=== PATIENT | male | born 1955 | race Caucasian/White ===

== ENCOUNTER 2018-12-17 17:42 | Observation (INO) ==
[2018-12-17] MEDS ORDERED: ZOFRAN IV PRN (18:25)
[2018-12-17] MEDS ORDERED: NS 1,000 ML IV SCH ×2 (18:30→21:22)
[2018-12-17] MEDS ORDERED: NS 500 ML IV ONE (18:41)
[2018-12-17] MEDS: BUSPAR PO SCH (19:44)
[2018-12-17] MEDS: PROSCAR PO SCH (19:45)
[2018-12-17] MEDS: FLEXERIL PO SCH (19:45)
[2018-12-17] MEDS: NEURONTIN PO SCH (19:45)
[2018-12-17] MEDS: CRESTOR PO SCH (19:46)
[2018-12-17] MEDS: GLUCOPHAGE PO SCH (19:46)
[2018-12-17 20:18] LABS: BASO# 0.03 X1000 (0.0-0.2); BASO% 0.5 % (0.0-0.8); EOS# 0.12 X1000 (0.0-0.7); EOS% 1.9 % (0.0-10.0); HEMATOCRIT 42.7 % (42.0-52.0); HEMOGLOBIN 15.1 g/dL (14.0-18.0); LYMPH# 1.67 X1000 (1.2-3.4); LYMPH% 25.8 % (20.5-51.1); MCH 33.1 PG (27-31); MCHC 35.4 g/dL (33-37); MCV 93.6 FL (81-99); MONO# 0.68 X1000 (0.11-0.59); MONO% 10.5 % (1.7-9.3); MPV 10.2 FL (7.4-10.4); NEUT# 3.98 X1000 (1.4-6.5); NEUT% 61.3 % (42.2-75.2); PLT 63 X1000 (130-400); RBC 4.56 XMIL (4.7-6.1); RDW 13.8 % (11.5-14.5); WBC 6.48 X1000 (4.8-10.8)
[2018-12-17 20:48] LABS: AGAP 10; ALB/GLOB RATIO 1.8; ALBUMIN 4.2 g/dL (3.5-5.0); ALKALINE PHOSPHATASE 61 U/L (32-122); BUN 6 mg/dL (8-22); CALCIUM 8.5 mg/dL (8.8-10.2); CHLORIDE 92 mmol/L (98-107); CK PROFILE 106 U/L (24-204); COSMO 252; CREATININE 0.7 mg/dL (0.7-1.2); ESTIMATED GFR > 60; GLUCOSE 85 mg/dL (70-104); GOT 14 U/L (10-34); GPT 14 U/L (10-44); POTASSIUM 3.6 mmol/L (3.5-5.1); SODIUM 127 mmol/L (136-145); TCO2 25 mmol/L (25-35); TOTAL BILIRUBIN 0.67 mg/dL (0.20-1.00); TOTAL PROTEIN 6.6 g/dL (6.3-8.3)
--- NOTE | 2018-12-17 21:06 | Diag Imaging Result Doc PS360 ---
EXAM: CT HEAD W/O CONTRAST - 12/17/2018 HISTORY: Syncope TECHNIQUE: CT head without contrast COMPARISON: 05/31/2015 MRI brain FINDINGS: There is no evidence of intracranial hemorrhage, mass effect, midline shift, or hydrocephalus. There is a small area of encephalomalacia at the inferior left frontal lobe similar to the prior MRI, which may relate to old small infarct. There is no indication of recent infarct, although acute infarcts may not be immediately visible. There are anterior falx ossifications noted consistent with normal variation. IMPRESSION: Small area of encephalomalacia at the inferior left frontal lobe similar to prior MRI, which may relate to old small infarct. No visible acute intracranial abnormality. No hemorrhage or mass effect. This exam was performed using automated exposure control, adjustment of mA or kV according to patient size, and/or use of iterative reconstruction technique. Electronically signed by Boone Ramos 12/17/2018 9:03 PM
--- NOTE | 2018-12-17 21:07 | Diag Imaging Result Doc PS360 ---
EXAM: CHEST-2 VIEWS - 12/17/2018 HISTORY: Shortness of breath TECHNIQUE: Chest two views COMPARISON: 11/06/2011 FINDINGS: Heart size is normal. There is mild linear scarring at the left base similar to prior. The lungs otherwise appear clear. There is no pleural effusion or pneumothorax identified. There are stable old mild compression deformity of mid to lower thoracic vertebral body noted. IMPRESSION: No evidence of acute disease. Electronically signed by Boone Ramos 12/17/2018 9:05 PM
--- NOTE | 2018-12-17 22:31 | HISTORY AND PHYSICAL ---
PRIMARY CARE PHYSICIAN: Dr. Dion Sheffield. CHIEF COMPLAINT: Weakness/syncopal episode. HISTORY OF PRESENT ILLNESS: A 63-year-old white male with a complicated past medical history presents for evaluation of above-mentioned symptoms. Current history of present illness began while waiting in my office. The patient states that another patient was leaving the office with a walker. Patient stood to assist her out the door and developed significant dizziness and weakness. Per report, he fell to the ground striking his head against the door. He did not suffer any significant injuries with the fall. Upon evaluation by my staff, patient was described as "glassy eyed." Ultimately, he regained consciousness and quickly developed significant nausea. He did not vomit. The patient was assisted into the examining room. While there, vital signs were taken and returned within normal limits. The patient's blood sugar returned at 97. States that he has felt poorly with weakness as well as increasing pain. He denies palpitations, chest discomfort, abdominal discomfort, change in bowel movements, nausea, vomiting, dysuria, hematuria, and pyuria. He has noted a foul taste in his mouth recently. PAST MEDICAL HISTORY: 1. Allergic rhinitis. 2. History of atypical chest pain status post negative cardiac evaluation in 2011. 3. Benign bladder tumor diagnosed in 2006. 4. Bilateral carpal tunnel syndrome status post release in 2002. 5. Depression/anxiety. 6. Diabetes. 7. Benign prostatic hypertrophy status post TURP in 2009. 8. Reflux disease. 9. Hypertension. 10. Hypertriglyceridemia. 11. Status post laparoscopic cholecystectomy in 2000. 12. Headaches. 13. History of hepatitis C. 14. Hyperlipidemia. 15. Hypothyroidism. 16. Low back pain. 17. Mnire disease. 18. Obstructive sleep apnea. 19. Osteoarthritis. 20. Hypogonadism. 21. Thrombocytopenia. 22. History of right-sided inguinal hernia repair in 1974. CURRENT MEDICATIONS: 1. Kathy 180 mg daily. 2. Amlodipine 5 mg at bedtime. 3. Bupropion ER 150 mg daily. 4. BuSpar 7.5 mg twice daily. 5. Flexeril 5 mg 3 times daily. 6. Depo-Testosterone every 2 weeks. 7. Lexapro 20 mg daily. 8. Finasteride 5 mg at bedtime. 9. Fluticasone nasal spray 2 sprays each nostril daily. 10. Gabapentin 800 mg 3 times daily. 11. Levothyroxine 150 mcg daily. 12. Losartan/hydrochlorothiazide 100/12.5 daily. 13. Meloxicam 15 mg daily. 14. Metformin 1000 mg twice daily. 15. Buxton 10/325 three times daily. 16. Omeprazole 20 mg daily. 17. ProAir HFA as needed. 18. Rosuvastatin 20 mg at bedtime. ALLERGIES: Patient states he is allergic to codeine which causes nausea, vomiting, and diarrhea, Lipitor which causes myalgias, and simvastatin which proved ineffective. SOCIAL HISTORY: Patient previously smoked 1/2 pack per day and 5 cigars for 30 years old. He quit in 2000. He denies alcohol or illicit drug use. 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 He enjoys fishing. He exercises intermittently. FAMILY HISTORY: Patient's father passed at age 84 secondary to complications of an acute stroke. He had a history of diabetes, hypertension, hyperlipidemia, acute myocardial infarction at age 50, stroke at age 81, prostate and colon cancer. Mother is living at age 90 with a history of an arrhythmia status post pacemaker implantation. REVIEW OF SYSTEMS: A 12-point review of systems was performed. Pertinent positives and negatives noted in history present illness. PHYSICAL EXAMINATION: VITAL SIGNS: Temperature 97.9 degrees, heart rate 74, respirations 16, blood pressure is 118/70. GENERAL: Well nourished, well developed, no acute distress. HEENT: Normocephalic, atraumatic. Pupils equal, round, react to light. Extraocular muscles intact. Sclerae anicteric. [place] conjunctivae. Oral and nasopharynx clear without exudate. NECK: Supple. No lymphadenopathy. No thyromegaly. No bruits auscultated. CARDIOVASCULAR: Regular rate and rhythm. No significant murmurs, rubs, or gallops. PULMONARY: Clear to auscultation bilaterally. ABDOMEN: Soft, nontender, nondistended. Positive bowel sounds. EXTREMITIES: Moves all extremities well. No significant clubbing, cyanosis, or edema. NEUROLOGIC EXAMINATION: Cranial nerves 2 through 12 grossly intact. Motor and sensory grossly intact. PSYCHOLOGIC EXAMINATION: Appropriate. LABORATORY DATA: White blood cell count 6.48, hemoglobin 15.1, hematocrit 42.7, platelet count 63,000, sodium 127, potassium 3.6, chloride 92, bicarb 25, BUN 6, creatinine 0.7, glucose 85, calcium 8.5, total bilirubin 0.67, total protein 6.6, albumin 4.2, alkaline phosphatase 61, AST 14, ALT 14, CK total 106, troponin less than 0.010. IMAGING: Chest x-ray revealed no evidence of acute disease. CT scan of the head suggested small area of encephalomalacia at the inferior left frontal lobe similar to prior MRI, which may relate to an old small infarct. No visible acute intracranial abnormality. No hemorrhage or mass effect. ASSESSMENT AND PLAN: A 63-year-old white male with past medical history as noted presents for evaluation of a syncopal episode. Laboratory data is significant for hyponatremia and thrombocytopenia, new when compared to labs from October. CT scan returned negative. Patient will be admitted to the hospital for full evaluation and management of each of these conditions. 1. Admit to General Medicine. 2. Syncopal episode--Differential diagnosis is quite broad. We will monitor patient on telemetry. We will schedule an echocardiogram and a carotid Doppler in the morning. Depending on these findings, we will consider whether further neurological evaluation and/or event monitoring as appropriate. 3. Hyponatremia--This is quite curious. Recently, patient's sodium level was within normal limits. This certainly could be secondary to syndrome of inappropriate antidiuretic hormone secretion in the setting of increasing pain. He also was being treated with hydrochlorothiazide. We will start patient on IV fluids. We will monitor his clinical course closely. 4. Thrombocytopenia--This also is quite curious. The patient's most recent platelet count was within normal limits. We will repeat levels in the a.m. If this remains low, we will consider whether hematology consultation is appropriate. We will plan to check vitamin B12, folate, and an iron panel. 5. Hypertension--At this point, we will hold antihypertensive intervention. Once blood pressure responds, we will plan to resume therapy. 6. Weakness--This likely is a consequence of his acute illness. We will treat as described above. We will follow. 7. Depression/anxiety--We will continue patient on Lexapro, bupropion, and buspirone therapy. 8. Chronic pain--Unfortunately, symptoms are increasing. We will continue his home regimen and plan for pain specialist referral as an outpatient. 9. Diabetes--We will continue metformin therapy. 10. Fluid, electrolytes, nutrition. We will monitor electrolytes. Normal saline at 75 mL an hour. Cardiac prudent diet. 11. Prophylaxis. Anticoagulants will be held in the setting of thrombocytopenia. We will start after [*]. cc: Dion Sheffield MD
[2018-12-17] MEDS: NORCO-10 PO SCH (22:34)
[2018-12-18] MEDS: PROSCAR PO SCH (00:12)
[2018-12-18] MEDS: BUSPAR PO SCH ×2 (00:12→09:47)
[2018-12-18] MEDS: FLEXERIL PO SCH ×4 (00:13→15:02)
[2018-12-18] MEDS: GLUCOPHAGE PO SCH ×2 (00:13→09:48)
[2018-12-18] MEDS: NEURONTIN PO SCH ×4 (00:13→15:03)
[2018-12-18] MEDS: CRESTOR PO SCH (00:14)
[2018-12-18] MEDS: NORCO-10 PO SCH ×2 (06:32→13:43)
[2018-12-18] MEDS ORDERED: PRILOSEC PO SCH (07:00)
[2018-12-18] MEDS ORDERED: SYNTHROID PO SCH (07:00)
[2018-12-18 07:22] LABS: BASO# 0.02 X1000 (0.0-0.2); BASO% 0.4 % (0.0-0.8); EOS# 0.19 X1000 (0.0-0.7); EOS% 4.2 % (0.0-10.0); HEMATOCRIT 46.2 % (42.0-52.0); LYMPH# 1.65 X1000 (1.2-3.4); LYMPH% 36.8 % (20.5-51.1); MCH 32.9 PG (27-31); MCHC 34.6 g/dL (33-37); MCV 95.1 FL (81-99); MONO# 0.47 X1000 (0.11-0.59); MONO% 10.5 % (1.7-9.3); MPV 10.1 FL (7.4-10.4); NEUT# 2.15 X1000 (1.4-6.5); NEUT% 48.1 % (42.2-75.2); RBC 4.86 XMIL (4.7-6.1); RDW 14.2 % (11.5-14.5); WBC 4.48 X1000 (4.8-10.8)
[2018-12-18 07:27] LABS: PLT 27 X1000 (130-400)
[2018-12-18 07:29] LABS: AGAP 9; BUN 6 mg/dL (8-22); CALCIUM 8.9 mg/dL (8.8-10.2); CHLORIDE 103 mmol/L (98-107); COSMO 273; CREATININE 0.7 mg/dL (0.7-1.2); ESTIMATED GFR > 60; GLUCOSE 121 mg/dL (70-104); POTASSIUM 4.1 mmol/L (3.5-5.1); SODIUM 137 mmol/L (136-145); TCO2 25 mmol/L (25-35); TOTAL IRON 115 ug/dL (53-167)
[2018-12-18 07:44] LABS: FERRITIN 50 ng/mL (30-400)
--- NOTE | 2018-12-18 08:11 | EKG Report ---
Test Performed on : 12/18/2018 08:01:29 AM Test Reason : Syncopal episode Blood Pressure : / mmHG Vent. Rate : 074 BPM Atrial Rate : 074 BPM P-R Int : 172 ms QRS Dur : 094 ms QT Int : 378 ms P-R-T Axes : 056 071 063 degrees QTc Int : 419 ms Normal sinus rhythm. Normal ECG No previous ECGs available Confirmed by Brian DAVIS, Kumar ([id number]) on 12/18/2018 11:46:02 AM
[2018-12-18] MEDS ORDERED: LEXAPRO PO SCH (09:00)
[2018-12-18] MEDS ORDERED: MOBIC PO SCH (09:00)
[2018-12-18] MEDS ORDERED: ALLEGRA PO SCH (09:00)
[2018-12-18] MEDS ORDERED: WELLBUTRIN XL PO SCH (09:00)
[2018-12-18 14:52] LABS: BASO# 0.01 X1000 (0.0-0.2); BASO% 0.3 % (0.0-0.8); EOS# 0.11 X1000 (0.0-0.7); EOS% 3.7 % (0.0-10.0); HEMATOCRIT 46.9 % (42.0-52.0); HEMOGLOBIN 17.2 g/dL (14.0-18.0); LYMPH# 1.04 X1000 (1.2-3.4); LYMPH% 35.1 % (20.5-51.1); MCH 33.7 PG (27-31); MCHC 36.7 g/dL (33-37); MONO# 0.43 X1000 (0.11-0.59); MONO% 14.5 % (1.7-9.3); MPV 8.6 FL (7.4-10.4); NEUT# 1.37 X1000 (1.4-6.5); NEUT% 46.4 % (42.2-75.2); PLT 75 X1000 (130-400); RDW 15.1 % (11.5-14.5); WBC 2.96 X1000 (4.8-10.8)
[2018-12-18 14:55] LABS: EOS 4 % (1-10); LYMPHS 35 % (21-51); MONO 15 % (1-9); SEGS 46 % (42-75)
[2018-12-18 15:22] VITALS: BP 130/80
--- NOTE | 2018-12-18 17:29 | ECHO REPORT ---
ORDER DATE: 12/18/2018 REQUESTING PHYSICIAN: Dr. Dion Sheffield. INDICATION: Syncope. M-MODE MEASUREMENTS: Left ventricle end diastole: 5.0 cm. Left ventricle end systole: 3.1 cm. Posterior wall: 0.9 cm. Interventricular septum: 0.9 cm. Left atrium: 3.7 cm. Aortic diameter: 3.4 cm. SUMMARY OF 2-DIMENSIONAL IMAGIN. The left ventricular function is normal. Ejection fraction is estimated at 65% to 70%. No wall motion abnormality is noted. 2. The aortic valve has three cusps, they open normally. Color flow mapping unremarkable. 3. The pulmonic valve looks normal. Color flow mapping unremarkable. 4. The mitral valve looks normal. Color flow mapping is unremarkable. 5. Pulsed wave Doppler of mitral inflow shows mild reversal of the E and the A ratio. Ratio is 0.8. 6. Tissue Doppler of septal and lateral mitral annulus averages 11 cm. There is no diastolic dysfunction. 7. Tricuspid valve shows mild degree of regurgitation. 8. Pulmonary pressure is estimated grossly at 32 mmHg. 9. There is no evidence of mass or thrombus. 10.The atria and the rest of the chambers appear to be unremarkable. Clinical correlation recommended. cc: MD Dion Hopkins MD
--- NOTE | 2018-12-19 13:34 | DISCHARGE SUMMARY ---
ADMISSION DATE: 12/17/2018 DISCHARGE DATE: 12/18/2018 ADMISSION DIAGNOSES: 1. Weakness. 2. Syncopal episode. DISCHARGE DIAGNOSES: 1. Syncopal episode with unknown etiology. 2. Weakness. 3. Hyponatremia, resolved. 4. Thrombocytopenia. 5. Hypertension, present on arrival. 6. Depression/anxiety, present on arrival. 7. Chronic pain, present on arrival. 8. Diabetes, present on arrival. CONSULTATIONS: None. PROCEDURES: 1. Chest x-ray was performed on 12/17/2018 which revealed no evidence of acute disease. 2. A CT scan of the head was performed on 12/17/2018 which revealed a small area of encephalomalacia at the inferior left frontal lobe similar to prior MRI, which may relate to old small infarct. No visible acute intracranial abnormality. No hemorrhage or mass effect. 3. Echocardiogram was performed on 12/18/2018 which revealed left ventricular function is normal with ejection fraction estimated at 65 to 70 percent. No wall motion abnormality noted. The aortic valve has 3 cusps, they open normally. Color-flow mapping is unremarkable. The pulmonic valve looks normal. Color-flow mapping unremarkable. The mitral valve looks normal. Color flow mapping is unremarkable. No diastolic dysfunction is identified. Tricuspid valve shows a mild degree of regurgitation. Pulmonic pressure is estimated at 32 mmHg. There is no evidence of mass or thrombus. PHYSICAL EXAMINATION: See admit note of physical examination. Prior to discharge, temperature 97.6 degrees, heart rate 60, respirations 20, blood pressure is 130/80. General: Well nourished, well developed, no acute distress. Cardiovascular: Regular rate and rhythm. No significant murmurs, rubs, or gallops. Pulmonary: Clear to auscultation bilaterally. Abdomen: Soft, nontender, nondistended. Positive bowel sounds. Extremities: Moves all extremities well. No significant clubbing, cyanosis, or edema. Dermatologic: Evaluation reveals no evidence of rash. LABORATORY DATA: White blood cell count 2.96, hemoglobin 17.2, hematocrit 46.9, platelet count 75,000. Sodium 137, potassium 4.1, chloride 103, bicarb 25, BUN 6, creatinine 0.7, glucose 121, calcium 8.9. Iron 115, ferritin 50. Vitamin B12 of 483 folate 11.7. HOSPITAL COURSE: Patient was admitted as per history and physical examination. Hospital course per condition is as follows. 1. Syncopal episode - upon admission, the patient had experienced a syncopal episode while in my office. This occurred after he stood attempting to assist another patient with the waiting room door. Full evaluation was pursued. CT scan returned as described above. Echocardiogram returned as above. Telemetry overnight demonstrated no evidence of arrhythmia. Carotid Doppler is pending. With no further episodes and improvement in his condition, it was felt discharge home was appropriate. While hospitalized, his amlodipine and losartan/hydrochlorothiazide were held. Working diagnosis at this point suggests orthostatic hypotension precipitating his syncopal episode. Should patient have any further symptoms, we will have a low threshold for a 30 day event monitor. 2. Hyponatremia - upon admission, patient was noted to be hyponatremic. With IV fluids, this resolved prior to discharge. 3. Thrombocytopenia - this is quite interesting. The patient was noted to be thrombocytopenic upon admission. On the day of discharge, repeat platelet count returned significantly low. Dr. Wen was consulted. It appears that patient does have some platelet clumping. Interestingly though, he also has a history of thrombocytopenia. With a repeat draw in a heparin tube, his platelet count returned at 75,000. Per Dr. Wen, patient has demonstrated levels in this range for many years. Because there is no evidence of bleeding or complications associated, it was felt discharge home with close outpatient followup was most appropriate. He plans to follow up with Dr. Wen in 1 week. 4. Hypertension - the patient is currently being treated with losartan, hydrochlorothiazide, and amlodipine therapy. Each of these were held while hospitalized. His blood pressure remained within normal limits. For this reason, we will continue to hold these medications as an outpatient. Once his systolic blood pressure is consistently above 130, he will resume amlodipine. Should his blood pressure remained above 130, he will then resume losartan and hydrochlorothiazide. We will have patient follow up in approximately 1 week for further evaluation. 5. Weakness - patient was noted to have profound weakness upon admission. This likely is a consequence of his hypotensive state. Full evaluation revealed no definitive etiology other than poor p.o. intake. We will encourage activity as an outpatient. 6. Depression/anxiety - patient's symptoms remained reasonably controlled with Lexapro, bupropion, a buspirone therapy. 7. Chronic pain - unfortunately, this has increased. Certainly the pain could precipitate in syndrome of inappropriate antidiuretic hormone hypersecretion. We will continue his current pain medication regimen. Should patient continue to have progression, we will have a low threshold for referral for pain medicine specialty. 8. Diabetes - Patient was maintained on metformin therapy. DISCHARGE CONDITION: Good. DISPOSITION: Discharged to home. MEDICATIONS: 1. Wellbutrin XL 150 mg daily. 2. Buspirone 7.5 mg twice daily. 3. Flexeril 5 mg 3 times daily. 4. Lexapro 20 mg daily. 5. Kathy 180 mg daily. 6. Finasteride 5 mg daily. 7. Gabapentin 800 mg 3 times daily. 8. [place] 1 tablet every 8 hours. 9. Levothyroxine 150 mcg daily. 10. Meloxicam 15 mg daily. 11. Metformin 500 mg twice daily. 12. Omeprazole 20 mg daily. 13. Rosuvastatin 20 mg at bedtime. Patient has been instructed to hold amlodipine and losartan/hydrochlorothiazide. Once blood pressure is consistently above 130/80, he is to resume amlodipine 5 mg at bedtime. If blood pressure remains above 130/80, we will resume losartan/hydrochlorothiazide. FOLLOWUP: The patient is to follow with Dr. Wen next week. Patient to follow up with me in 1 to 2 weeks. cc: Dion Sheffield MD
--- NOTE | 2018-12-19 17:49 | Carotid Study ---
DATE: 12/18/2018 PROCEDURE: Bilateral carotid duplex and color flow imaging performed using a GE Vivid E9 ultrasound system with a 9L-D transducer. REFERRING PHYSICIAN: Dr. Dion Sheffield. INTERPRETING PHYSICIAN: Jeronimo Garcia MD. TECH: Sindy Rodriguez Ricco. INDICATIONS: This is a 63-year-old male with syncope. OBSERVED DATA RIGHT LEFT Brachial Blood Pressure Carotid Pulse Bruits: Carotid/Sub DIAGRAM OF ULTRASOUND IMAGING R L RIGHT INT EXT INT EXT LEFT Deon (cm/s) Deon (cm/s) Subclavian 85/0 Subclavian 107/0 CCA Proximal 93/20 CCA Proximal 102/25 CCA Distal 92/24 CCA Distal 76/21 Bulb 64/24 Bulb 81/22 ICA Proximal 76/23 ICA Proximal 88/25 ICA Mid 71/28 ICA Mid 71/28 ICA Distal 71/27 ICA Distal 64/29 ECA 95/24 ECA 91/20 Vertebral 45/18 Forward Vertebral 54/16 Forward ICA/CCA Ratio 0.82 ICA/CCA Ratio 0.87 % Stenosis 0-39 % Stenosis 0-39 PHYSICIAN INTERPRETATION: Mild atherosclerotic disease of the distal common and internal carotid arteries bilaterally without evidence of a hemodynamically significant lesion in either carotid system. cc: MD Dion Dowell MD
== END 2018-12-18 18:10 | disposition home or self-care (01) ==
LOC: DIRADM 17:42 → INTOOBSV 17:42 → 4N 18:12
PROVIDERS: ADMIT Internal Medicine; ATTEND Internal Medicine
CPT/HCPCS: 70450; 71020; 71046; 80048; 80053; 82550; 82607; 82728; 82746; 83540; 84443; 84484; 85025; 93005; 93010; 93306; 93880; 94760; A9270; J7030; J7040; S0138